=== PATIENT | female | born 1980 | race Caucasian/White ===

== ENCOUNTER 2019-04-10 12:26 | Emergency (ER) | payer OTHER ==
[~2019-04-10] VITALS: Ht 170.2 cm; Wt 90.7 kg
--- OUTSIDE RECORDS SUMMARY | ~2019-04-10 | XMS | Encounter Summary ---
Demographics + + + | Address | [address] | | | [place] [address] | + + + | Home Phone | | + + + | Preferred Language | Unknown | + + + | Marital Status | | + + + | Sabianism Affiliation | Unknown | + + + | Race | Unknown | + + + | Ethnic Group | Unknown | + + + Author + + + | Author | [facility] | | | and Luis Fernandoana | + + + | Organization | [facility] | | | and [place] | + + + | Address | Unknown | + + + | Phone | Unavailable | + + + Care Team Providers + +------+ + | Care Artist Representative Name | Role | Phone | + +------+ + PCP | Unavailable | + +------+ + Encounter Details +--------+ + + + + | Date | Type | Department | Care Team | Description | +--------+ + + + + | 10/27/ | Hospital | [facility] GENER[facility] OP | Tiara Johnson, | LGSIL on Pap Smear | | 2006 | Encounter | CONVERSION [address] | PA-C [address] | | | | | [address] | [place], [place] | | | | | [place], [place] | [address] | | | | | [address] | [phone] | | | | | [phone] | | | +--------+ + + + + Social History + +-------+ +--------+------+ | Tobacco Use | Types | Packs/Day | Years | Date | | | | | Used | | + +-------+ +--------+------+ | Never Assessed | | | | | + +-------+ +--------+------+ + + + | Sex Assigned at | Date Recorded | | | | + + + | Not on file | | + + + + + + + | Job Start Date | Occupation | Industry | + + + + | Not on file | Not on file | Not on file | + + + + + + + + | Travel History | Travel Start | Travel End | + + + + + + | No recent travel history available. | + + documented as of this encounter Plan of Treatment Not on filedocumented as of this encounter Visit Diagnoses + + | Diagnosis | + + | Papanicolaou smear of cervix with low grade squamous intraepithelial lesion (LGSIL) | + + documented in this encounter"
--- OUTSIDE RECORDS SUMMARY | ~2019-04-10 | XMS | Clinical Summary ---
Demographics + + + | Address | [address] | | | [place] [address] | + + + | Home Phone | | + + + | Preferred Language | Unknown | + + + | Marital Status | | + + + | Anabaptism Affiliation | Unknown | + + + | Race | Unknown | + + + | Ethnic Group | Unknown | + + + Author + + + | Author | [facility] | | | and [place] Fernando[place] | + + + | Organization | [facility] | | | and [place] | + + + | Address | Unknown | + + + | Phone | Unavailable | + + + Care Team Providers + +------+ + | Care Roll Edge Machine Operator Name | Role | Phone | + +------+ + PCP | Unavailable | + +------+ + Allergies Not on File Medications Not on file Active Problems Not on file Encounters +--------+ + + + + | Date | Type | Specialty | Care Team | Description | +--------+ + + + + | 06/24/ | Orders Only | | Conversion | | | 2009 | | | Transaction, | | | | | | Provider Unknown | | +--------+ + + + + from Last 3 Months Social History + +-------+ +--------+------+ | Tobacco Use | Types | Packs/Day | Years | Date | | | | | Used | | + +-------+ +--------+------+ | Never Smoker | | | | | + +-------+ [...] recent travel history available. | + + Last Filed Vital Signs + + + + + | Vital Sign | Reading | Time Taken | Comments | + + + + + | Blood Pressure | 110/76 | 12/21/2015 12:26 PM | | | | | PDT | | + + + + + | Pulse | 90 | 12/21/2015 12:26 PM | | | | | PDT | | + + + + + | Temperature | 37.2 C (99 F) | 12/21/2015 12:26 PM | | | | | PDT | | + + + + + | Respiratory Rate | 18 | 12/21/2015 12:26 PM | | | | | PDT | | + + + + + | Oxygen Saturation | - | - | | + + + + + | Inhaled Oxygen | - | - | | | Concentration | | | | + + + + + | Weight | 65.6 kg (144 lb 9.6 | 12/21/2015 12:26 PM | | | | oz) | PDT | | + + + + + | Height | 170.2 cm (5' 7") | 12/21/2015 12:26 PM | | | | | PDT | | + + + + + | Body Mass Index | 22.65 | 12/21/2015 12:26 PM | | | | | PDT | | + + + + + Plan of Treatment + + + + + | Health Maintenance | Due Date | Last Done | Comments | + + + + + | Vaccine: | | | | | Dtap/Tdap/Td (1 - | 7 | | | | Tdap) | | | | + + + + + | Cervical Cancer | | 06/24/2008 | | | Screening (Pap) | 4 | | | + + + + + | Vaccine: Influenza | | | | | (#1) | 9 | | | + + + + + Results Not on filefrom Last 3 Months
--- OUTSIDE RECORDS SUMMARY | ~2019-04-10 | XMS | Encounter Summary ---
Demographics + + + | Address | [address] | | | [place] [address] | + + + | Home Phone | | + + + | Preferred Language | Unknown | + + + | Marital Status | | + + + | Mosque Affiliation | Unknown | + + + | Race | Unknown | + + + | Ethnic Group | Unknown | + + + Author + + + | Author | [facility] | | | and [place] Fernando[place] | + + + | Organization | [facility] | | | and [place] | + + + | Address | Unknown | + + + | Phone | Unavailable | + + + Care Team Providers + +------+ + | Care Seamless Tube Drawer Name | Role | Phone | + +------+ + PCP | Unavailable | + +------+ + Encounter Details +--------+ + + + + | Date | Type | Department | Care Team | Description | +--------+ + + + + | 06/10/ | [facility] | [facility] | Javan Jimenez | Screening | | 2007 | Encounter | CONVERSION [address]P [address] | Cresencio [phone] | for Malformation | | | | [address] | (Fax) | Using Ultrasonics | | | | [facility] [place] | | | | | | [address] | | | | | | [phone] | | | +--------+ + + + [...] + | Diagnosis | + + | Encounter for routine screening for malformation using ultrasonics | + + documented in this encounter"
--- OUTSIDE RECORDS SUMMARY | ~2019-04-10 | XMS | Encounter Summary ---
Demographics + + + | Address | [address] | | | [place] [address] | + + + | Home Phone | | + + + | Preferred Language | Unknown | + + + | Marital Status | Single | + + + | Orthodox Affiliation | Unknown | + + + | Race | Unknown | + + + | Ethnic Group | Other Race | + + + Author + + + | Author | [facility] | + + + | Organization | [facility] | + + + | Address | Unknown | + + + | Phone | Unavailable | + + + Support +------+ +---------+ + | Name | Relationship | Address | Phone | +------+ +---------+ + | Unk | ECON | Unknown | Unavailable | +------+ +---------+ + Care Team Providers + +------+ + | Care Tangible Personal Property Appraiser Name | Role | Phone | + +------+ + | Unknown | PCP | Unavailable | + +------+ + Reason for Visit + + + | Reason | Comments | + + + | Medication requested | | + + + Encounter Details +--------+ + + + + | Date | Type | Department | Care Team | Description | +--------+ + + + + | 11/23/ | Urgent Care | [facility] | Reggie Santillan, FAST FOODS WORKER | Medication requested | | 2019 | Video | Visits- Urgent Care | [address] | | | | Visit | [address] | [address] | | | | | [place], | [place], [place] | | | | | [place] [address] | [address] | | | | | [phone] | [phone] | | | | | | | | +--------+ + + + [...] + + documented as of this encounter Progress Notes Reggie Santillan, FAST FOODS WORKER - 11/23/2018 2:30 PM PDT [facility] Visits- Urgent Care [address] [facility] [address] Primary Care Doctor is No primary provider on file. Patient is calling from home today. Chief Complaint: Medication requested HPI: Pt is a 38 y.o. female who presents with request for medication refill and rash. Pt is requesting refill Contrave. Pt reports that she was placed on this for obesity, and h ad been tolerating medication well until her PCP moved in May 2018. Pt reports that when PCP moved they took her medical records, and other facilities in her community now refuse to re fill medication without medical records. Pt reports she has not been on this medication in 2 -3 months. Pt requesting baclofen and gabapentin. Pt states she has been prescribed this and hydrocodo ne/acteminophen for chronic mid back pain secondary to kyphosis by primary care. Pt states s he does not want the hydrocodone/acetaminphen as baclofen and gabapentin control symptoms. P t states that she has not been on either of these medications in 2-3 months. Pt states the marti barton mentioned PCP left in May as she has not been able to establish someone to disc uss her chronic back pain. Pt denies any acute changes to chronic back pain. In regards to rash, pt reports circular hypopigmented areas on the breast, chest, and back for a number of years. Pt reports she was previously diagnosed with a fungal infection and p t reports she previously had to be prescribed multiple weeks of daily oral antifungals. Pt r eports that after multiple weeks, symptoms resolved but soon after redeveloped. Pt describes them as itching, traveling to various areas on the trunk. Pt denies any pain or drainage. P t reports topical antifungals have not provided with any relief. Pt states she attempted to make an apt with a PCP in her community a number of months ago t o discuss these issues, however she states they informed her without her previous records th ey would not take her as a new patient. Pt chart is reviewed for relevant medical history. Pt is prescribed Ambien every night for insomnia. Problem List: There are no active problems to display for this patient. Past Medical History: No past medical history on file. Past Surgical History: No past surgical history on file. Past Social Hx: Social History Socioeconomic History Marital status: Not on file Spouse name: Not on file Number of children: Not on file Years of education: Not on file Highest education level: Not on file Occupational History Not on file Social Needs Financial resource strain: Not on file Food insecurity: Worry: Not on file Inability: Not on file Transportation needs: Medical: Not on file Non-medical: Not on file Tobacco Use Smoking status: Not on file Substance and Sexual Activity Alcohol use: Not on file Drug use: Not on file Sexual activity: Not on file Lifestyle Physical activity: Days per week: Not on file Minutes per session: Not on file Stress: Not on file Relationships Social connections: Talks on phone: Not on file Gets together: Not on file Attends islam service: Not on file Active member of club or organization: Not on file Attends meetings of clubs or organizations: Not on file Relationship status: Not on file Other Topics Concern Not on file Social History Narrative Not on file Past Family Hx: All: No Known Allergies Rx List: No current outpatient medications on file. No current facility-administered medications for this visit. ROS: Review of Systems Constitutional: Negative for chills and fever. Respiratory: Negative for cough. Cardiovascular: Negative for chest pain. Gastrointestinal: Negative for abdominal pain, diarrhea, nausea and vomiting. Musculoskeletal: Positive for back pain. Skin: Positive for itching and rash. Psychiatric/Behavioral: The patient has insomnia. Physical Exam: Physical Exam Constitutional: She is well-developed, well-nourished, and in no distress. HENT: Head: Normocephalic. Eyes: Pupils are equal, round, and reactive to light. Neck: Normal range of motion. Pulmonary/Chest: Effort normal. No respiratory distress. Skin: Circular 1-2 cm hypopigmented areas present on the upper portion of the chest. No erythema break in the skin, swelling or drainage. Breast area not examined due to [facility] policy. Assessment/Plan: Pt is a 38 y.o. female who presents with rash and request for medication r efills. In regards to the chronic back pain, I do not recommend starting these chronic medications via the [facility]. The reasoning I have is that we are not able to monitor and follow up with thi s patient. Gabapentin requires careful titration, especially in the context of other sedatin g drugs the patient is taking such as ambien. The patient would be best served by being seen by a PCP who can make determinations about the appropriate of medication and other therapie s for her chronic back pain. I do not believe that restarting anti-obesity medication of Contrave is appropriate via the [facility] for similar reasons as we are unable to perform a full physical exam, follow up, and p rovide other referrals that may be indicated such as dietary. In regards to the rash, the circular hypopigmentation has a presentation consistent with ti carolann versicolor. Pt reports resolution with multiple weeks of oral antifungals and reoccurren ce of symptoms when these medications were stopped. They are widespread and pt reports they are present on the breasts, chest and back. I am hesitant to prescribe oral antifungals for a long period of time via virtual urgent care due to our lack of ability to follow up and in ability to check LFTs at baseline. I am not sure of the value in shorter length of treatment given her history of requiring longer treatment. Given reoccurrence of tinea versicolor and history of obesity, screening for diabetes would likely be beneficial as well. To this end, I'd recommend being seen at an in person urgent care who should be able to provide further guidance and any necessary baseline testing before the initiation of oral antifungal therapy . Pt states she has physical urgent cares in her community. Pt would highly benefit from a primary care provider, which she states she will do further research on in her community. I informed pt that primary care providers should be willing to see her without records, although they may require records before they prescribe certain me dications. Diagnosis: PCP Referral: Patient does not have current PCP, a referral to a new PCP referral was bishnu ryan Offered referral to the demi Curry declines due to distance I spent 10 minutes with the patient. Greater than 50% of the time was spent counseling the patient regarding symptoms, importance of being seen in person. Pt was referred to higher level of care: yes, Pt's PCP ADEEL Voss documented in this enc ounter Plan of Treatment Not on filedocumented as of this encounter Visit Diagnoses + + | Diagnosis | + + | Chronic back pain, unspecified back location, unspecified back pain laterality - | | Primary | + + | Obesity, unspecified classification, unspecified obesity type, unspecified whether | | serious comorbidity present | + + | Tinea versicolor Pityriasis versicolor | + + documented in this encounter"
--- OUTSIDE RECORDS SUMMARY | ~2019-04-10 | XMS | Encounter Summary ---
Demographics + + + | Address | [address] | | | [place] [address] | + + + | Home Phone | | + + + | Preferred Language | Unknown | + + + | Marital Status | | + + + | Amish Affiliation | Unknown | + + + | Race | Unknown | + + + | Ethnic Group | Unknown | + + + Author + + + | Author | [facility] | | | and Luis Fernandoana | + + + | Organization | [facility] | | | and [place] | + + + | Address | Unknown | + + + | Phone | Unavailable | + + + Care Team Providers + +------+ + | Care Product Safety Lead Name | Role | Phone | + +------+ + PCP | Unavailable | + +------+ + Encounter Details +--------+ + + + + | Date | Type | Department | Care Team | Description | +--------+ + + + + | 06/24/ | Orders Only | [facility] GENER[facility] OP | Conversion | | | 2009 | | CONVERSION [address]P [address] | Transaction, | | | | | [address] | Provider Unknown | | | | | [place], [place] | [phone] | | | | | [address] | | | | | | [phone] | | | +--------+ + + + [...] Not on filedocumented as of this encounter Procedures + +--------+ + + + | Procedure Name | Priori | Date/Time | Associated Diagnosis | Comments | | | ty | | | | + +--------+ + + + | PATHOLOGY PROFESSOR OF COMMUNICATION AND WRITING | Routin | 06/24/2008 | | Results for this | | REQUEST | e | 11:12 AM | | procedure are in the | | | | PST | | results section. | + +--------+ + + + documented in this encounter Results Pathology Stenographic Court Reporter Request (06/24/2008 11:12 AM PST) + +--------+ + + + | Component | Value | Ref Range | Performed | Pathologist | | | | | At | Signature | + +--------+ + + + | Pap Smear, | Normal | | EXTERNAL | | | External | | | LAB | | + +--------+ + + + + + | Specimen | + + | | + + + +---------+ + + | Performing | Address | City/State/Zipcode | Phone Number | | Organization | | | | + +---------+ + + | EXTERNAL LAB | | | | + +---------+ + + documented in this encounter Visit Diagnoses Not on filedocumented in this encounter"
--- OUTSIDE RECORDS SUMMARY | ~2019-04-10 | XMS | Encounter Summary ---
Demographics + + + | Address | [address] | | | [place] [address] | + + + | Home Phone | | + + + | Preferred Language | Unknown | + + + | Marital Status | | + + + | Mosque Affiliation | Unknown | + + + | Race | Unknown | + + + | Ethnic Group | Unknown | + + + Author + + + | Author | [facility] | | | and [place] Fernando[place] | + + + | Organization | [facility] | | | and [place] | + + + | Address | Unknown | + + + | Phone | Unavailable | + + + Care Team Providers + +------+ + | Care Risk Control Specialist Name | Role | Phone | + +------+ + PCP | Unavailable | + +------+ + Encounter Details +--------+ + + + + | Date | Type | Department | Care Team | Description | +--------+ + + + + | 10/13/ | Hospital | [facility] [place] [facility] | Richard Hogan | Routine | | 2008 | Encounter | CONVERSION [address] | MD Michael [address] | Follow-Up | | | | [address] | [place] | | | | | [place] | [id number] | | | | | [address] | | | | | | [phone] | | | +--------+ + + + [...] + | Diagnosis | + + | Routine follow-up | + + documented in this encounter"
--- OUTSIDE RECORDS SUMMARY | ~2019-04-10 | XMS | Encounter Summary ---
Demographics + + + | Address | [address] | | | [place] [address] | + + + | Home Phone | | + + + | Preferred Language | Unknown | + + + | Marital Status | | + + + | Jain Affiliation | Unknown | + + + | Race | Unknown | + + + | Ethnic Group | Unknown | + + + Author + + + | Author | [facility] | | | and [place] | + + + | Organization | [facility] | | | and [place] | + + + | Address | Unknown | + + + | Phone | Unavailable | + + + Care Team Providers + +------+ + | Care Inspector Aligning Name | Role | Phone | + +------+ + PCP | Unavailable | + +------+ + Encounter Details +--------+ + + + + | Date | Type | Department | Care Team | Description | +--------+ + + + + | 03/05/ | [facility] | [facility] | Javan Jimenez | | | 2004 | Encounter | [facility] | Cresencio [phone] | | | | | [address] | (Fax) | | | | | [address] | | | | | | [place], [place] | | | | | | [address] | | | | | | [phone] | | | +--------+ + + + [...] filedocumented as of this encounter Visit Diagnoses Not on filedocumented in this encounter"
--- OUTSIDE RECORDS SUMMARY | ~2019-04-10 | XMS | Encounter Summary ---
Demographics + + + | Address | [address] | | | [place] [address] | + + + | Home Phone | | + + + | Preferred Language | Unknown | + + + | Marital Status | | + + + | Congregation Affiliation | Unknown | + + + | Race | Unknown | + + + | Ethnic Group | Unknown | + + + Author + + + | Author | [facility] | | | and [place] Fernando[place] | + + + | Organization | [facility] | | | and [place] | + + + | Address | Unknown | + + + | Phone | Unavailable | + + + Care Team Providers + +------+ + | Care Shopping Inspector Name | Role | Phone | + +------+ + PCP | Unavailable | + +------+ + Encounter Details +--------+ + + + + | Date | Type | Department | Care Team | Description | +--------+ + + + + | 04/20/ | Hospital | [facility] [place] | Javan Jimenez | | | 2007 | Encounter | [address] | Cresencio [phone] | | | | | [address] | (Fax) | | | | | [place] | | | | | | [address] | | | | | | [phone] | | | +--------+ + + + [...]
--- OUTSIDE RECORDS SUMMARY | ~2019-04-10 | XMS | Encounter Summary ---
Demographics + + + | Address | [address] | | | [place] [address] | + + + | Home Phone | | + + + | Preferred Language | Unknown | + + + | Marital Status | | + + + | Confucianist Affiliation | Unknown | + + + | Race | Unknown | + + + | Ethnic Group | Unknown | + + + Author + + + | Author | [facility] | | | and [place] Fernando[place] | + + + | Organization | [facility] | | | and [place] | + + + | Address | Unknown | + + + | Phone | Unavailable | + + + Care Team Providers + +------+ + | Care Fruit Loader Machine Operator Name | Role | Phone | + +------+ + PCP | Unavailable | + +------+ + Encounter Details +--------+ + + + + | Date | Type | Department | Care Team | Description | +--------+ + + + + | 03/05/ | Hospital | [facility] | Javan Jimenez | [facility] | | 2003 | Encounter | CONVERSION [address] | Cresencio [phone] | FOLLOW-UP | | | | [address] | (Fax) | | | | | [place] | | | | | | [address] | | | | | | [phone] | | | +--------+ + + + [...]
--- OUTSIDE RECORDS SUMMARY | ~2019-04-10 | XMS | Encounter Summary ---
Demographics + + + | Address | [address] | | | [place] [address] | + + + | Home Phone | | + + + | Preferred Language | Unknown | + + + | Marital Status | | + + + | Muslim Affiliation | Unknown | + + + | Race | Unknown | + + + | Ethnic Group | Unknown | + + + Author + + + | Author | [facility] | | | and [place] | + + + | Organization | [facility] | | | and [place] | + + + | Address | Unknown | + + + | Phone | Unavailable | + + + Care Team Providers + +------+ + | Care Tiltrotor Crew Chief Name | Role | Phone | + +------+ + PCP | Unavailable | + +------+ + Encounter Details +--------+ + + + + | Date | Type | Department | Care Team | Description | +--------+ + + + + | 03/06/ | Hospital | [facility] GENERIC OP | Tiara Johnson, | | | 2006 | Encounter | [address] | PA-C [address] | | | | | [address] | [place] | | | | | [place] | [address] | | | | | [address] | [phone] | | | | | [phone] | | | +--------+ + + + [...]
--- OUTSIDE RECORDS SUMMARY | ~2019-04-10 | XMS | Encounter Summary ---
Demographics + + + | Address | [address] | | | [place] [address] | + + + | Home Phone | | + + + | Preferred Language | Unknown | + + + | Marital Status | | + + + | Orthodox Affiliation | Unknown | + + + | Race | Unknown | + + + | Ethnic Group | Unknown | + + + Author + + + | Author | [facility] | | | and [place] Fernandoana | + + + | Organization | [facility] | | | and [place] | + + + | Address | Unknown | + + + | Phone | Unavailable | + + + Care Team Providers + +------+ + | Care Armor Reconnaissance Vehicle Driver Name | Role | Phone | + +------+ + PCP | Unavailable | + +------+ + Encounter Details +--------+ + + + + | Date | Type | Department | Care Team | Description | +--------+ + + + + | 02/26/ | Hospital | [facility] | Tiara Johnson, | | | 2006 | Encounter | CONVERSION DEP [address] | PA-C [address] | | | | | [address] | [place] | | | | | [place] | [address] | | | | | [address] | [phone] | | | | | [phone] | | | +--------+ + + + [...]
--- OUTSIDE RECORDS SUMMARY | ~2019-04-10 | XMS | Clinical Summary ---
Demographics + + + | Address | [address] | | | [place] [address] | + + + | Home Phone | | + + + | Preferred Language | Unknown | + + + | Marital Status | Single | + + + | Methodist Affiliation | Unknown | + + + | Race | Unknown | + + + | Ethnic Group | Other Race | + + + Author + + + | Author | [facility]VEN[facility] | + + + | Organization | NON REVENUE LOCATIONS | + + + | Address | Unknown | + + + | Phone | Unavailable | + + + Support +------+ +---------+ + | Name | Relationship | Address | Phone | +------+ +---------+ + | Unk | ECON | Unknown | Unavailable | +------+ +---------+ + Care Team Providers + +------+ + | Care Technical Document Writer Name | Role | Phone | + +------+ + | Unknown | PCP | Unavailable | + +------+ + Source Comments FARIDA is fully live on both [facility] Amb[facility] and [facility] InPatient.[facility] Allergies No Known Allergies Medications Not on file Active Problems Not on file Social History + +-------+ +--------+------+ | Tobacco [...] | + + Last Filed Vital Signs Not on file Plan of Treatment + + + + + | Health Maintenance | Due Date | Last Done | Comments | + + + + + | Influenza (Flu) | | 05/27/2017, 02/27/2016, | | | vaccination (#1) | 9 | 02/23/2014, Additional history | | | | | exists | | + + + + + | Pneumococcal | Aged Out | | No longer eligible | | vaccination | | | based on patient's | | | | | age to complete this | | | | | topic | + + + + + Results Not on filefrom Last 3 Months Insurance + +--------+ +--------+-------+---------+--------+ | Payer | Benefi | Subscriber | Effect | Phone | Address | Type | | | t Plan | ID | naz | | | | | | / | | Dates | | | | | | Group | | | | | | + +--------+ +--------+-------+---------+--------+ | GLASS RIBBON MACHINE OPERATOR ASSISTANT MEDICAID | GLASS RIBBON MACHINE OPERATOR ASSISTANT | xxxxxxxx | 11/25/19 | | | Medica | | | [place] | | 18-Pre | | | id | | | [place] | | sent | | | | + +--------+ +--------+-------+---------+--------+ + +--------+ +--------+ + + | Guarantor Name | Accoun | Relation to | Date | Phone | Billing Address | | | t Type | Patient | of | | | | | | | | | | + +--------+ +--------+ + + | Patsy Thornton | Person | Self | [birth year] | [address] | | | al/Fam | | 1980 | [phone] | [place] [address] | | | rogelio | | | 9 (Home) | | + +--------+ +--------+ + +"
--- OUTSIDE RECORDS SUMMARY | ~2019-04-10 | XMS | Clinical Summary ---
Demographics + + + | Address | [address] | | | [place] [address] | + + + | Home Phone | | + + + | Preferred Language | Unknown | + + + | Marital Status | | + + + | Druze Affiliation | Unknown | + + + | Race | Unknown | + + + | Ethnic Group | Unknown | + + + Author + + + | Author | [facility] | | | and [place] | + + + | Organization | [facility] | | | and [place] | + + + | Address | Unknown | + + + | Phone | Unavailable | + + + Care Team Providers + +------+ + | Care Field Support Representative Name | Role | Phone | [...]
--- OUTSIDE RECORDS SUMMARY | ~2019-04-10 | XMS | Encounter Summary ---
Demographics + + + | Address | [address] | | | [place] [address] | + + + | Home Phone | | + + + | Preferred Language | Unknown | + + + | Marital Status | | + + + | Amish Affiliation | Unknown | + + + | Race | Unknown | + + + | Ethnic Group | Unknown | + + + Author + + + | Author | [facility] | | | and [place] | + + + | Organization | [facility] | | | and [place] | + + + | Address | Unknown | + + + | Phone | Unavailable | + + + Care Team Providers + +------+ + | Care Skiff Operator Name | Role | Phone | + +------+ + PCP | Unavailable | + +------+ + Encounter Details +--------+ + + + + | Date | Type | Department | Care Team | Description | +--------+ + + + + | 02/28/ | Hospital | [facility] | Javan Jimenez | | | 2003 - | Encounter | [facility] | Cresencio [phone] | | | | | AND DELIVERY 888 | (Fax) | | | 03/02/ | | [address] | | | | 2003 | | [facility] [place] | | | | | | [address] | | | | | | [phone] | | | +--------+ + + + [...]
--- OUTSIDE RECORDS SUMMARY | ~2019-04-10 | XMS | Encounter Summary ---
Demographics + + + | Address | [address] | | | [place] [address] | + + + | Home Phone | | + + + | Preferred Language | Unknown | + + + | Marital Status | | + + + | Jehovah'S Witness Affiliation | Unknown | + + + | Race | Unknown | + + + | Ethnic Group | Unknown | + + + Author + + + | Author | [facility] | | | and [place] | + + + | Organization | [facility] | | | and [place] | + + + | Address | Unknown | + + + | Phone | Unavailable | + + + Care Team Providers + +------+ + | Care Sort Operations Supervisor Name | Role | Phone | + +------+ + PCP | Unavailable | + +------+ + Encounter Details +--------+ + + + + | Date | Type | Department | Care Team | Description | +--------+ + + + + | 03/05/ | Hospital | [facility] | Javan Jimenez | KATHERINE POSTPART | | 2003 | Encounter | CONVERSION DEP [address] | Cresencio [phone] | FOLLOW-UP | | | | [address] | (Fax) | | | | | [place] | | | | | | [address] | | | | | | [phone] | | | +--------+ + + + [...]
--- OUTSIDE RECORDS SUMMARY | ~2019-04-10 | XMS | Encounter Summary ---
Demographics + + + | Address | [address] | | | [place] [address] | + + + | Home Phone | | + + + | Preferred Language | Unknown | + + + | Marital Status | | + + + | Mandaen Affiliation | Unknown | + + + | Race | Unknown | + + + | Ethnic Group | Unknown | + + + Author + + + | Author | [facility] | | | and [place] | + + + | Organization | [facility] | | | and [place] | + + + | Address | Unknown | + + + | Phone | Unavailable | + + + Care Team Providers + +------+ + | Care Attic Fans Mechanic Name | Role | Phone | + +------+ + PCP | Unavailable | + +------+ + Encounter Details +--------+ + + + + | Date | Type | Department | Care Team | Description | +--------+ + + + + | 09/12/ | [facility] | [facility] | Cali Cabrera MD | | | 2010 | Encounter | MED CTR XRAY [address] | | | | | [address] [place] | [place] [address] | | | | | [place] [address] | [phone] | | | | | [phone] | | | +--------+ + + + [...]
--- OUTSIDE RECORDS SUMMARY | ~2019-04-10 | XMS | Encounter Summary ---
Demographics + + + | Address | [address] | | | [place] [address] | + + + | Home Phone | | + + + | Preferred Language | Unknown | + + + | Marital Status | | + + + | Muslim Affiliation | Unknown | + + + | Race | Unknown | + + + | Ethnic Group | Unknown | + + + Author + + + | Author | [facility] | | | and [place] | + + + | Organization | [facility] | | | and [place] | + + + | Address | Unknown | + + + | Phone | Unavailable | + + + Care Team Providers + +------+ + | Care Cad Developer Name | Role | Phone | + [...] | | | | [place] | [address] | | | | | [address] | [phone] | | | | | [phone] | | | +--------+ + + + [...]
--- OUTSIDE RECORDS SUMMARY | ~2019-04-10 | XMS | Encounter Summary ---
Demographics + + + | Address | [address] | | | [place] [address] | + + + | Home Phone | | + + + | Preferred Language | Unknown | + + + | Marital Status | | + + + | Buddhist Affiliation | Unknown | + + + | Race | Unknown | + + + | Ethnic Group | Unknown | + + + Author + + + | Author | [facility] | | | and [place] | + + + | Organization | [facility] | | | and [place] | + + + | Address | Unknown | + + + | Phone | Unavailable | + + + Care Team Providers + +------+ + | Care Mobile Crane Operator Name | Role | Phone | + +------+ + PCP | Unavailable | + +------+ + Encounter Details +--------+ + + + + | Date | Type | Department | Care Team | Description | +--------+ + + + + | 02/28/ | Hospital | [facility] | Javan Jimenez | | | 2003 - | Encounter | [facility] | Cresencio [phone] | | | | | AND DELIVERY 888 | (Fax) | | | 03/02/ | | [address] | | | | 2003 | | [facility] [place] | | | | | | [address] | | | | | | [phone] | | | +--------+ + + + [...]
--- OUTSIDE RECORDS SUMMARY | ~2019-04-10 | XMS | Clinical Summary ---
Demographics + + + | Address | [address] [facility] [address] [facility] | | | [place] [address] | + + + | Home Phone | | + + + | Preferred Language | Unknown | + + + | Marital Status | Single | + + + | Bahai Affiliation | Unknown | + + + [...] Team Providers + +------+ + | Care Ground Source Heat Pump Technician Name | Role | Phone | + +------+ + | Unknown | PCP | Unavailable | + +------+ + Source Comments FARIDA is fully live on both [facility] Ambulatory and [facility] InPatient.[facility] Allergies No Known Allergies Medications Not on [...] | | | + +--------+ +--------+-------+---------+--------+ | COMMERCIAL DRAFTER MEDICAID | COMMERCIAL DRAFTER | xxxxxxxx | 11/25/19 | | | [...] | 1980 | [phone] | [place] [address] | | | [place]io | | | 9 (Home) | | + +--------+ +--------+ + +"
--- OUTSIDE RECORDS SUMMARY | ~2019-04-10 | XMS | Encounter Summary ---
Demographics + + + | Address | [address] | | | [place] [address] | + + + | Home Phone | | + + + | Preferred Language | Unknown | + + + | Marital Status | | + + + | Yarsani Affiliation | Unknown | + + + | Race | Unknown | + + + | Ethnic Group | Unknown | + + + Author + + + | Author | [facility] | | | and [place] | + + + | Organization | [facility] | | | and [place] | + + + | Address | Unknown | + + + | Phone | Unavailable | + + + Care Team Providers + +------+ + | Care Hand Gluer And Slicer Name | Role | Phone | + +------+ + PCP | Unavailable | + +------+ + Encounter Details +--------+ + + + + | Date | Type | Department | Care Team | Description | +--------+ + + + + | 10/13/ | Hospital | [facility] | Richard Hogan | Routine | | 2008 | Encounter | CONVERSION DEP [address] | MD Michael [address] | Follow-Up | | | | [address] | [place] | | | | | [place] | [id number] | | | | | [address] | | | | | | [phone] | | | +--------+ + + + [...]
--- OUTSIDE RECORDS SUMMARY | ~2019-04-10 | XMS | Encounter Summary ---
Demographics + + + | Address | [address] | | | [place] [address] | + + + | Home Phone | | + + + | Preferred Language | Unknown | + + + | Marital Status | | + + + | Sabianist Affiliation | Unknown | + + + | Race | Unknown | + + + | Ethnic Group | Unknown | + + + Author + + + | Author | [facility] | | | and [place] | + + + | Organization | [facility] | | | and [place] | + + + | Address | Unknown | + + + | Phone | Unavailable | + + + Care Team Providers + +------+ + | Care Community Living Coach Name | Role | Phone | + +------+ + PCP | Unavailable | + +------+ + Encounter Details +--------+ + + + + | Date | Type | Department | Care Team | Description | +--------+ + + + + | 10/02/ | [facility] | [facility] | Cali Cabrera MD | | | 2010 | Encounter | MED CTR XRAY [address] | | | | | [place] [place] | [place] [address] | | | | | [place] [address] | [phone] | | | | | [phone] | | | +--------+ + + + [...] | + +--------+ + + + | XR THORACOLUMBAR | | 10/02/2010 | | Results for this | | STANDING FOR | | 10:09 AM | | procedure are in the | | SCOLIOSIS | | PDT | | results section. | + +--------+ + + + documented in this encounter Results XR Scoliosis Standing (10/02/2010 10:09 AM PDT) + + | Specimen | + + | | + + + + + | Narrative | Performed At | + + + | [facility] Diagnostic Imaging Department | [facility] | | [address] | [facility] | | SIX-VIEW SCOLIOSIS SERIES, | DIAG IMG | | 10/02/10 CLINICAL HISTORY: BACK PAIN AND SCOLIOSIS. | | | COMPARISON: Thoracic MRI 12/07/2009, CT thoracic spine 07/19/2009, | | | both from [facility]. FINDINGS: AP neutral and | | | lateral bending views and lateral views of the spine in neutral, | | | flexed and extended positions are provided. Previously described | | | butterfly vertebra at T7 is best visualized on the lateral views. | | | Approximately 34 degrees of kyphosis is centered at this level, | | | increasing to 49 degrees with active flexion and appearing relatively | | | stable with active extension. No spondylolisthesis is appreciated. | | | There is dominant rightward curvature of the lower thoracic and | | | lumbar spine centered at T12, measuring approximately 14 degrees in | | | the neutral position. This decreases to 5 degrees with right | | | lateral bending and increases to 25 degrees with left lateral | | | bending. Additional mild S-shaped curvature of the mid thoracic | | | spine appears grossly similar in appearance with lateral bending. | | | Surgical clips project in the region of the gallbladder fossa. | | | Imaged intrathoracic and intraabdominal structures are otherwise | | | unremarkable. Straightening of the cervical lordosis is | | | incidentally noted. IMPRESSION: 1. 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 2. DOMINANT DEXTROSCOLIOSIS | | | CENTERED AT T12, INCREASING WITH LEFT LATERAL BENDING AND DECREASING | | | WITH RIGHT LATERAL BENDING INDICATED. Dictated Date/Time: | | | 10/02/2010 14:26 Transcribed Date/Time: 10/02/2010 14:47 | | | Dump Worker: <Electronically Signed by Romeo Sarabia MD> | | | 10/02/10 2208 | | + + + + + | Procedure Note | + + | Percy, Rad Conversion - 07/02/2013 2:54 PM [facility] | | Diagnostic Imaging Department | | [address] | | | | | | | | SIX-VIEW SCOLIOSIS SERIES, 10/02/10 | | | | CLINICAL HISTORY: BACK PAIN AND SCOLIOSIS. | | | | COMPARISON: Thoracic MRI 12/07/2009, CT thoracic spine 07/19/2009, both from | | [facility]. | | | | FINDINGS: AP neutral and lateral bending views and lateral views of the spine | | in neutral, flexed and extended positions are provided. | | | | Previously described butterfly vertebra at T7 is best visualized on the lateral | | views. Approximately 34 degrees of kyphosis is centered at this level, | | increasing to 49 degrees with active flexion and appearing relatively stable | | with active extension. No spondylolisthesis is appreciated. | | | | There is dominant rightward curvature of the lower thoracic and lumbar spine | | centered at T12, measuring approximately 14 degrees in the neutral position. | | This decreases to 5 degrees with right lateral bending and increases to 25 | | degrees with left lateral bending. Additional mild S-shaped curvature of the | | mid thoracic spine appears grossly similar in appearance with lateral bending. | | | | Surgical clips project in the region of the gallbladder fossa. Imaged | | intrathoracic and intraabdominal structures are otherwise unremarkable. | | Straightening of the cervical lordosis is incidentally noted. | | | | IMPRESSION: | | 1. T7 VERTEBRAL ANOMALY WITH ASSOCIATED KYPHOSIS, DISCUSSED. | | | | 2. DOMINANT DEXTROSCOLIOSIS CENTERED AT T12, INCREASING WITH LEFT LATERAL | | BENDING AND DECREASING WITH RIGHT LATERAL BENDING INDICATED. | | | | Dictated Date/Time: 10/02/2010 14:26 | | Transcribed Date/Time: 10/02/2010 14:47 | | Dump Worker: | | <Electronically Signed by Romeo Sarabia MD> 10/02/10 2208 | + + + +---------+ + + | Performing | Address | City/State/Zipcode | Phone Number | | Organization | | | | + +---------+ + + | [place] | | | | | [place] | | | | + +---------+ + + documented in this encounter Visit Diagnoses Not on filedocumented in this encounter"
--- OUTSIDE RECORDS SUMMARY | ~2019-04-10 | XMS | Encounter Summary ---
Demographics + + + | Address | [address] | | | [place] [address] | + + + | Home Phone | | + + + | Preferred Language | Unknown | + + + | Marital Status | | + + + | Worship Affiliation | Unknown | + + + | Race | Unknown | + + + | Ethnic Group | Unknown | + + + Author + + + | Author | [facility] | | | and [place] | + + + | Organization | [facility] | | | and [place] | + + + | Address | Unknown | + + + | Phone | Unavailable | + + + Care Team Providers + +------+ + | Care Clinical Services Professional Name | Role | Phone | + +------+ + PCP | Unavailable | + +------+ + Encounter Details +--------+ + + + + | Date | Type | Department | Care Team | Description | +--------+ + + + + | 06/10/ | [facility] | [facility] | Javan Jimenez | Screening | | 2007 | Encounter | CONVERSION DEP [address] | Cresencio [phone] | for Malformation | | | | [address] | (Fax) | Using [employer] | | | | [facility] [place] | | | | | | [address] | | | | | | [phone] | | | +--------+ + + + [...]
--- OUTSIDE RECORDS SUMMARY | ~2019-04-10 | XMS | Encounter Summary ---
Demographics + + + | Address | [address] | | | [place] [address] | + + + | Home Phone | | + + + | Preferred Language | Unknown | + + + | Marital Status | | + + + | Cheondoism Affiliation | Unknown | + + + | Race | Unknown | + + + | Ethnic Group | Unknown | + + + Author + + + | Author | [facility] | | | and [place] | + + + | Organization | [facility] | | | and [place] | + + + | Address | Unknown | + + + | Phone | Unavailable | + + + Care Team Providers + +------+ + | Care Stable Manager Name | Role | Phone | + +------+ + PCP | Unavailable | + +------+ + Encounter Details +--------+ + + + + | Date | Type | Department | Care Team | Description | +--------+ + + + + | 03/05/ | [facility] | [facility] | Javan Jimenez | | | 2004 | Encounter | [facility] | Cresencio [phone] | | | | | AND DELIVERY [address] | (Fax) | | | | | [address] | | | | | | [place], [place] | | | | | | [address] | | | | | | [phone] | | | +--------+ + + + [...]
--- OUTSIDE RECORDS SUMMARY | ~2019-04-10 | XMS | Encounter Summary ---
Demographics + + + | Address | [address] | | | [place] [address] | + + + | Home Phone | | + + + | Preferred Language | Unknown | + + + | Marital Status | | + + + | Presybeterian Affiliation | Unknown | + + + | Race | Unknown | + + + | Ethnic Group | Unknown | + + + Author + + + | Author | [facility] | | | and [place] | + + + | Organization | [facility] | | | and [place] | + + + | Address | Unknown | + + + | Phone | Unavailable | + + + Care Team Providers + +------+ + | Care Biology Specialist Name | Role | Phone | [...] | | | | [address] | [place], [place] | | | | | [place], [place] | [address] | | | | | [address] | [phone] | | | | | [phone] | | | +--------+ + + + [...]
--- OUTSIDE RECORDS SUMMARY | ~2019-04-10 | XMS | Encounter Summary ---
Demographics + + + | Address | [address] | | | [place] [address] | + + + | Home Phone | | + + + | Preferred Language | Unknown | + + + | Marital Status | | + + + | Quaker Affiliation | Unknown | + + + | Race | Unknown | + + + | Ethnic Group | Unknown | + + + Author + + + | Author | [facility] | | | and [place] | + + + | Organization | [facility] | | | and [place] | + + + | Address | Unknown | + + + | Phone | Unavailable | + + + Care Team Providers + +------+ + | Care Wafer Cleaner Name | Role | Phone | + [...] | | | | [place] | [address] | | | | | [address] | [phone] | | | | | [phone] | | | +--------+ + + + [...]
--- OUTSIDE RECORDS SUMMARY | ~2019-04-10 | XMS | Encounter Summary ---
Demographics + + + | Address | [address] | | | [place] [address] | + + + | Home Phone | | + + + | Preferred Language | Unknown | + + + | Marital Status | Single | + + + | Religion Affiliation | Unknown | + + + | Race | Unknown | + + + | Ethnic Group | Other Race | + + + Author + + + | Author | [facility] | + + + | Organization | [facility] | + + + | Address | Unknown | + + + | Phone | Unavailable | + + + Support +------+ +---------+ + | Name | Relationship | Address | Phone | +------+ +---------+ + | Unk | ECON | Unknown | Unavailable | +------+ +---------+ + Care Team Providers + +------+ + | Care Maintenance Mechanic Supervisor Name | Role | Phone | [...] Care | [facility] | Reggie Santillan, HARDWARE PRESS OPERATOR | Medication requested | | 2019 | Video | Visits- Urgent Care | [address] | | | | Visit | [address] | [address] | | | | | [place], | [place], [place] | | | | | [place] [address] | [address] | | | | | [phone] | [phone] | | | | | | | [...] of this encounter Progress Notes Reggie Santillan, HARDWARE PRESS OPERATOR - 11/23/2018 2:30 PM PDT [facility] Virtual Visits- Urgent Care [address] [facility] [address] Primary Care Doctor is No primary provider [...] file Gets together: Not on file Attends anabaptist service: Not on file Active member of [...]
--- OUTSIDE RECORDS SUMMARY | ~2019-04-10 | XMS | Encounter Summary ---
Demographics + + + | Address | [address] | | | [place] [address] | + + + | Home Phone | | + + + | Preferred Language | Unknown | + + + | Marital Status | | + + + | Bahai Affiliation | Unknown | + + + | Race | Unknown | + + + | Ethnic Group | Unknown | + + + Author + + + | Author | [facility] | | | and [place] | + + + | Organization | [facility] | | | and [place] | + + + | Address | Unknown | + + + | Phone | Unavailable | + + + Care Team Providers + +------+ + | Care Tree Faller Name | Role | Phone | + +------+ + PCP | Unavailable | + +------+ + Encounter Details +--------+ + + + + | Date | Type | Department | Care Team | Description | +--------+ + + + + | 06/13/ | Hospital | [facility] | Javan Jimenez | Screening for | | 2008 | Encounter | CONVERSION DEP [address] | Cresencio [phone] | Malignant Neoplasm | | | | [address] | (Fax) | of the Cervix | | | | [place], [place] | | | | | | [address] | | | | | | [phone] | | | +--------+ + + + [...] + | Diagnosis | + + | Screening for malignant neoplasm of the cervix | + + documented in this encounter"
--- OUTSIDE RECORDS SUMMARY | ~2019-04-10 | XMS | Clinical Summary ---
Demographics + + + | Address | [address] | | | [place] [address] | + + + | Home Phone | | + + + | Preferred Language | Unknown | + + + | Marital Status | | + + + | Adventist Affiliation | Unknown | + + + | Race | Unknown | + + + | Ethnic Group | Unknown | + + + Author + + + | Author | [employer] (Historical as of | | | 01-09-19) | + + + | Organization | [facility] [employer] (Historical as of | | | 01-09-19) | + + + | Address | Unknown | + + + | Phone | Unavailable | + + + Support + + +---------+ + | Name | Relationship | Address | Phone | + + +---------+ + | Detailed,Sabina | ECON | Unknown | | + + +---------+ + | Kentrell Cobian | ECON | Unknown | | + + +---------+ + Care Team Providers + +------+ + | Care Storyboard Artist Name | Role | Phone | + +------+ + | Dr. Stephen | PP | Unavailable | + +------+ + Allergies No Known Allergies Current Medications No known medications Active Problems Not on file Social History + +-------+ +--------+------+ | Tobacco Use | Types | Packs/Day | Years | Date | | | | | Used | | + +-------+ +--------+------+ | Never Smoker | | | | | + +-------+ +--------+------+ + +---+---+---+ | Smokeless Tobacco: | | | | | Never Used | | | | + +---+---+---+ + + +---------+ + | Alcohol Use | Drinks/We | oz/Week | Comments | | | ek | | | + + +---------+ + | No | | | | + + +---------+ + + + + | Sex Assigned at | Date Recorded | | | | + + + | Not on file | | + + + Last Filed Vital Signs + + + + | Vital Sign | Reading | Time Taken | + + + + | Blood Pressure | 110/76 | 12/21/2015 12:23 PM PDT | + + + + | Pulse | 90 | 12/21/2015 12:23 PM PDT | + + + + | Temperature | 37.2 C (99 F) | 12/21/2015 12:23 PM PDT | + + + + | Respiratory Rate | 18 | 12/21/2015 12:23 PM PDT | + + + + | Oxygen Saturation | 98% | 12/21/2015 12:23 PM PDT | + + + + | Inhaled Oxygen | - | - | | Concentration | | | + + + + | Weight | 65.6 kg (144 lb 9.6 | 12/21/2015 12:23 PM PDT | | | oz) | | + + + + | Height | 170.2 cm (5' 7") | 12/21/2015 12:23 PM PDT | + + + + | Body Mass Index | 22.65 | 12/21/2015 12:23 PM PDT | + + + + Plan of Treatment + + + + + | Health Maintenance | Due Date | Last Done | Comments | + + + + + | Vaccine: | | | | | Dtap/Tdap/Td (1 - | 7 | | | | Tdap) | | | | + + + + + | Cervical Cancer | | 06/24/2008, 05/13/2007, | | | Screening (Pap) | 4 | 11/05/2006, Additional history | | | | | exists | | + + + + + | Vaccine: Influenza | | | | | (#1) | 9 | | | + + + + + Results Not on filefrom Last 3 Months
--- OUTSIDE RECORDS SUMMARY | ~2019-04-10 | XMS | Encounter Summary ---
Demographics + + + | Address | [address] | | | [place] [address] | + + + | Home Phone | | + + + | Preferred Language | Unknown | + + + | Marital Status | | + + + | Restoration Affiliation | Unknown | + + + | Race | Unknown | + + + | Ethnic Group | Unknown | + + + Author + + + | Author | [facility] | | | and [place] Fernando[place] | + + + | Organization | [facility] | | | and [place] | + + + | Address | Unknown | + + + | Phone | Unavailable | + + + Care Team Providers + +------+ + | Care Manager Packaging Name | Role | Phone | + +------+ + PCP | Unavailable | + +------+ + Encounter Details +--------+ + + + + | Date | Type | Department | Care Team | Description | +--------+ + + + + | 04/27/ | Hospital | [facility] | Richard Hogan | Supervision of Other | | 2006 | Encounter | CONVERSION [address]P [address] | MD Michael [address] | Normal | | | | [address] | [place] | | | | | [facility] [place] | [address] | | | | | [address] | | | | | | [phone] | | | +--------+ + + + [...] + | Diagnosis | + + | Supervision of other normal | + + documented in this encounter"
--- OUTSIDE RECORDS SUMMARY | ~2019-04-10 | XMS | Encounter Summary ---
Demographics + + + | Address | [address] | | | [place] [address] | + + + | Home Phone [...] Author | [facility] | | | and [place] | + + + | Organization | [facility] | | | and [place] | + + + | Address | Unknown | + + + | Phone | Unavailable | + + + Care Team Providers + +------+ + | Care Egg And Spice Mixer Name | Role | Phone | + +------+ + PCP | Unavailable | + +------+ + Encounter Details +--------+ + + + + | Date | Type | Department | Care Team | Description | +--------+ + + + + | 06/13/ | Hospital | [facility] | Javan Jimenez | Screening for | | 2008 | Encounter | CONVERSION DEP [address] | Cresencio [phone] | Malignant Neoplasm | | | | [address] | (Fax) | of the Cervix | | | | [place], [place] | | | | | | [address] | | | | | | [phone] | | | +--------+ + + + [...]
--- OUTSIDE RECORDS SUMMARY | ~2019-04-10 | XMS | Encounter Summary ---
Demographics + + + | Address | [address] | | | [place] [address] | + + + | Home Phone | | + + + | Preferred Language | Unknown | + + + | Marital Status | | + + + | Latter-Day Affiliation | Unknown | + + + | Race | Unknown | + + + | Ethnic Group | Unknown | + + + Author + + + | Author | [facility] | | | and [place] | + + + | Organization | [facility] | | | and [place] | + + + | Address | Unknown | + + + | Phone | Unavailable | + + + Care Team Providers + +------+ + | Care Purchasing Contracting Clerk Name | Role | Phone | + +------+ + PCP | Unavailable | + +------+ + Encounter Details +--------+ + + + + | Date | Type | Department | Care Team | Description | +--------+ + + + + | 10/09/ | Hospital | [facility] | Richard Hogan | | | 2007 - | Encounter | [facility] | MD Michael [address] | | | | | [address] | [place] | | | 10/10/ | | [place] | [address] | | | 2007 | | [place], [place] | | | | | | [address] | | | | | | [phone] | | | +--------+ + + + [...]
--- OUTSIDE RECORDS SUMMARY | ~2019-04-10 | XMS | Encounter Summary ---
Demographics + + + | Address | [address] | | | [place] [address] | + + + | Home Phone | | + + + | Preferred Language | Unknown | + + + | Marital Status | | + + + | Hoahaoism Affiliation | Unknown | + + + | Race | Unknown | + + + | Ethnic Group | Unknown | + + + Author + + + | Author | [facility] | | | and [place] | + + + | Organization | [facility] | | | and [place] | + + + | Address | Unknown | + + + | Phone | Unavailable | + + + Care Team Providers + +------+ + | Care Sheet Metal Technician Name | Role | Phone | [...] Provider Unknown | | | | | [place], [place] | [phone] | | | | | [address] | | | | | | [phone] | | | +--------+ + + + [...] + +--------+ + + + | PATHOLOGY RESOURCE TEACHER | Routin | 06/24/2008 | | Results for this | | REQUEST | e | 11:12 AM | | procedure are in the | | | | PST | | results section. | + +--------+ + + + documented in this encounter Results Pathology Facility Worker Request (06/24/2008 11:12 AM PST) + +--------+ [...]
--- OUTSIDE RECORDS SUMMARY | ~2019-04-10 | XMS | Encounter Summary ---
Demographics + + + | Address | [address] | | | [place] [address] | + + + | Home Phone | | + + + | Preferred Language | Unknown | + + + | Marital Status | | + + + | Zoroastrian Affiliation | Unknown | + + + | Race | Unknown | + + + | Ethnic Group | Unknown | + + + Author + + + | Author | [facility] | | | and [place] | + + + | Organization | [facility] | | | and [place] | + + + | Address | Unknown | + + + | Phone | Unavailable | + + + Care Team Providers + +------+ + | Care Granulating Machine Operator Name | Role | Phone | + +------+ + PCP | Unavailable | + +------+ + Encounter Details +--------+ + + + + | Date | Type | Department | Care Team | Description | +--------+ + + + + | 09/12/ | [facility] | [facility] | Cali Cabrera MD | | | 2010 | Encounter | MED CTR XRAY [address] | [address] | | | | | [address] [place] | [place] [address] | | | | | [place] [address] | [phone] | | | | | [phone] | | | +--------+ + + + [...]
--- OUTSIDE RECORDS SUMMARY | ~2019-04-10 | XMS | Encounter Summary ---
Demographics + + + | Address | [address] | | | [place] [address] | + + + | Home Phone | | + + + | Preferred Language | Unknown | + + + | Marital Status | | + + + | Adventist Affiliation | Unknown | + + + | Race | Unknown | + + + | Ethnic Group | Unknown | + + + Author + + + | Author | [facility] | | | and [place] Fernando[place] | + + + | Organization | [facility] | | | and [place] | + + + | Address | Unknown | + + + | Phone | Unavailable | + + + Care Team Providers + +------+ + | Care Bulk Sealer Operator Name | Role | Phone | + +------+ + PCP | Unavailable | + +------+ + Encounter Details +--------+ + + + + | Date | Type | Department | Care Team | Description | +--------+ + + + + | 10/09/ | Hospital | [facility] | Richard Hogan | | | 2007 - | Encounter | [facility] | MD Michael [address] | | | | | [address] | [place] | | | 10/10/ | | [address] | [address] | | | 2007 | | [place], [place] | | | | | | [address] | | | | | | [phone] | | | +--------+ + + + [...]
--- OUTSIDE RECORDS SUMMARY | ~2019-04-10 | XMS | Clinical Summary ---
Demographics + + + | Address | [address] | | | [place] [address] | + + + | Home Phone | | + + + | Preferred Language | Unknown | + + + | Marital Status | | + + + | Protestant Affiliation | Unknown | + + + | Race | Unknown | + + + | Ethnic Group | Unknown | + + + Author + + + | Author | [employer] (Historical as of | | | 01-09-19) | + + + | Organization | [facility] [employer] (Historical as of | | | 01-09-19) [...] Team Providers + +------+ + | Care Histologist Technologist Name | Role | Phone | + [...]
--- OUTSIDE RECORDS SUMMARY | ~2019-04-10 | XMS | Encounter Summary ---
Demographics + + + | Address | [address] | | | [place] [address] | + + + | Home Phone | | + + + | Preferred Language | Unknown | + + + | Marital Status | | + + + | Latter Day Affiliation | Unknown | + + + | Race | Unknown | + + + | Ethnic Group | Unknown | + + + Author + + + | Author | [facility] | | | and [place] | + + + | Organization | [facility] | | | and [place] | + + + | Address | Unknown | + + + | Phone | Unavailable | + + + Care Team Providers + +------+ + | Care Marketing Communications Manager Name | Role | Phone | + +------+ + PCP | Unavailable | + +------+ + Encounter Details +--------+ + + + + | Date | Type | Department | Care Team | Description | +--------+ + + + + | 10/02/ | [facility] | [facility] | Cali Cabrera MD | | | 2010 | Encounter | MED CTR XRAY [address] | | | | | [address] | [place] [address] | | | | | [place] [address] | [phone] | | | | | [phone] | | | +--------+ + + + [...] Performed At | + + + | [facility] Diagnostic Imaging Department | [facility] | | [address] [facility] | [facility] | | SIX-VIEW SCOLIOSIS SERIES, | DIAG IMG | | 10/02/10 CLINICAL HISTORY: BACK PAIN AND SCOLIOSIS. | | | COMPARISON: Thoracic MRI 12/07/2009, CT thoracic spine 07/19/2009, | | | both from [facility]. FINDINGS: AP neutral and | | [...] Transcribed Date/Time: 10/02/2010 14:47 | | | Data Center Consultant: <Electronically Signed by Romeo Sarabia MD> | | | 10/02/10 2208 | | + + + + + | Procedure Note | + + | Percy, Rad Conversion - 07/02/2013 2:54 PM [facility] | | Diagnostic Imaging Department | | [address] [facility] | | | | | | | | SIX-VIEW SCOLIOSIS SERIES, 10/02/10 | | | | CLINICAL HISTORY: BACK PAIN AND SCOLIOSIS. | | | | COMPARISON: Thoracic MRI 12/07/2009, CT thoracic spine 07/19/2009, both from | | [facility]. | | | | FINDINGS: AP [...] | Transcribed Date/Time: 10/02/2010 14:47 | | Data Center Consultant: | | <Electronically Signed by Romeo Sarabia [...]
--- OUTSIDE RECORDS SUMMARY | ~2019-04-10 | XMS | Encounter Summary ---
Demographics + + + | Address | [address] | | | [place] [address] | + + + | Home Phone | | + + + | Preferred Language | Unknown | + + + | Marital Status | | + + + | Mormonism Affiliation | Unknown | + + + | Race | Unknown | + + + | Ethnic Group | Unknown | + + + Author + + + | Author | [facility] | | | and [place] | + + + | Organization | [facility] | | | and [place] | + + + | Address | Unknown | + + + | Phone | Unavailable | + + + Care Team Providers + +------+ + | Care Bracelet And Brooch Maker Name | Role | Phone | + +------+ + PCP | Unavailable | + +------+ + Encounter Details +--------+ + + + + | Date | Type | Department | Care Team | Description | +--------+ + + + + | 04/27/ | Hospital | [facility] | Richard Hogan | Supervision of Other | | 2006 | Encounter | [address] | MD Michael [address] | Normal | | | | [address] | [place] | | | | | [facility] [place] | [address] | | | | | [address] | | | | | | [phone] | | | +--------+ + + + [...]
--- OUTSIDE RECORDS SUMMARY | ~2019-04-10 | XMS | Encounter Summary ---
Demographics + + + | Address | [address] | | | [place] [address] | + + + | Home Phone | | + + + | Preferred Language | Unknown | + + + | Marital Status | | + + + | Samaritan Affiliation | Unknown | + + + | Race | Unknown | + + + | Ethnic Group | Unknown | + + + Author + + + | Author | [facility] | | | and [place] | + + + | Organization | [facility] | | | and [place] | + + + | Address | Unknown | + + + | Phone | Unavailable | + + + Care Team Providers + +------+ + | Care Cloth Colorer Name | Role | Phone | + +------+ + PCP | Unavailable | + +------+ + Encounter Details +--------+ + + + + | Date | Type | Department | Care Team | Description | +--------+ + + + + | 04/20/ | Hospital | [facility] | Javan Jimenez | | | 2007 | Encounter | CONVERSION [address] | [place] [phone] | | | | | [address] | (Fax) | | | | | [place] | | | | | | [address] | | | | | | [phone] | | | +--------+ + + + [...]
[~2019-04-10 12:26] MED LIST: ATIVAN1 MG PO; AUGMENTIN 875-1 EACH PO; BRINTELLIX10 MG PO; BUPROPION XL300 MG PO; NORCO 5-325 TA1 EACH PO; PREDNISONE20 MG PO; ZOLPIDEM TARTRA10 MG PO
--- OUTSIDE RECORDS SUMMARY | 2019-04-10 12:30 | XMS ---
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 EKatt VISIT COUNT (12 MO.) 1 BRENT Fox TOTAL 1 NOTE: Visits indicate total known visits. ED/UCC VISIT TRACKING (12 MO.) 04/10/2019 12:27 BRENT [place] TYPE: Emergency COMPLAINT: - HALLUCINATIONS, POSSIBLE OD INPATIENT VISIT TRACKING (12 MO.) No inpatient visits to display in this time frame [email or web address]
[2019-04-10] MEDS ORDERED: LATUDA60 MG PO (15:02)
[2019-04-10] MEDS ORDERED: VITAMIN D50000 UNI1 PO (15:02)
[2019-04-10] MEDS ORDERED: VYLIBRA 28 TAB1 EACH PO (15:02)
[2019-04-10] MEDS ORDERED: DULOXETINE HCL30 MG PO (15:03)
[2019-04-10] MEDS ORDERED: GABAPENTIN600 MG PO (15:03)
--- NOTE | 2019-04-10 19:59 | EKG ---
[facility] [address] [place], [place] [address] Signed Sinus tachycardia Cannot rule out Anterior infarct , age undetermined Abnormal ECG No previous ECGs available Confirmed by KARI MORALES MD ([id number]) on 04/10/2019 7:59:40 PM Electronically Signed By: KARI MORALES MD 04/10/191958 PATIENT NAME: DIPTI BRUNNER Electrocardiogram DATE OF : 76 PHYSICIAN: KARI MORALES MD REPORT #: [id number] REPORT IS CONFIDENTIAL AND NOT TO BE RELEASED WITHOUT AUTHORIZATION
== END 2019-04-10 19:08 | disposition short-term general hospital (02) ==
LOC: ED 12:26
DX: F43.10 Post-traumatic stress disorder, unspecified (principal); Z79.899 Other long term (current) drug therapy; F32.9 Major depressive disorder, single episode, unspecified; F41.9 Anxiety disorder, unspecified
CPT/HCPCS: 36415; 80053; 80176; 81001; 84443; 84703; 85025; 93005; 93010; 99285-25; G0480

== ENCOUNTER 2019-07-18 17:51 | Emergency (ER) | payer OTHER ==
[~2019-07-18] VITALS: Ht 170.2 cm; Wt 90.7 kg
[~2019-07-18 17:51] MED LIST changes: +DULOXETINE HCL30 MG PO; +GABAPENTIN600 MG PO; +LATUDA60 MG PO; +VITAMIN D50000 UNI1 PO; +VYLIBRA 28 TAB1 EACH PO
--- OUTSIDE RECORDS SUMMARY | 2019-07-18 17:54 | XMS ---
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 E.D. VISIT COUNT (12 MO.) [address] TOTAL 3 NOTE: Visits indicate total known visits. ED/UCC VISIT TRACKING (12 MO.) 07/18/2019 17:51 [facility] [place] TYPE: Emergency COMPLAINT: - FLU SYMPTOMS, DIFFICULTY BREATHING 04/10/2019 23:49 [facility] [place] TYPE: Emergency COMPLAINT: - LOW BP - TRANSFER IN FROM [facility] DIAGNOSES: - Syncope and collapse - Hypotension, unspecified - Hypotension, unspecified - Syncope and collapse 04/10/2019 12:27 [facility] [place] TYPE: Emergency COMPLAINT: - POSSIBLE OD DIAGNOSES: - Other senior living (current) drug therapy - Post-traumatic stress disorder, unspecified - Anxiety disorder, unspecified - Encounter for other general examination - Major depressive disorder, single episode, unspecified INPATIENT VISIT TRACKING (12 MO.) No inpatient visits to display in this time frame [email or web address]
[2019-07-18] MEDS ORDERED: LEXAPRO10 MG PO (18:01)
[2019-07-18] MEDS ORDERED: NAPROXEN500 MG PO (20:31)
== END 2019-07-18 20:45 | disposition home or self-care (01) ==
LOC: ED 17:51
DX: J11.1 Influenza due to unidentified influenza virus with other respiratory manifestations (principal); Z79.899 Other long term (current) drug therapy
CPT/HCPCS: 71046; 80053; 81001; 84703; 85025; 99283-25

== ENCOUNTER 2020-10-03 11:46 | Inpatient (IN) | payer OTHER ==
[~2020-10-03 11:46] MED LIST changes: +LEXAPRO10 MG PO; +NAPROXEN500 MG PO
--- NOTE | 2020-10-03 17:41 | NUR ---
COVID SWAB COLLECTED , SENT TO [facility], NO COMPLICATIONS
--- NOTE | 2020-10-04 07:53 | PR ---
[facility] [address] [place], [place] [address] Signed PP Progress Notes Datetime Report Generated by CPN: 10/04/2020 07:53 SUBJECTIVE: [id number] Pain: Within Normal Limits Nausea/Vomiting: Denies Flatus: Yes Bowel Movement: No Vital Signs: [id number] Vital Signs: Reviewed; Within Normal Limits Cardiovascular: Normal Respiratory: Normal Abdomen/Uterus: Normal Lochia: Normal Vulva/Perineum: Not Done Breasts: Not Done CVA Tenderness: Normal Extremities: Normal Incision: Not Applicable Progress: Normal Exam Comments: Fundus firm U-2 nontender IMPRESSION/PLAN/PROCEDURES: [id number] Impression: Normal Progression Plan: Continue Present Management Progress Notes: Pt seen and examined. Doing well. Ambulating, voiding, and tolerating full diet. Pain and lochia minimal. well. No concerns. Anticipate d/c home tomorrow due to GBS+ status. Anticipate d/c home tomorrow. Signing Physician: Breana Moy DO Copies: ~ *Electronically Signed* 10/04/20 0753 BREANA MOY DO PATIENT NAME: DIPTI BRUNNER PROGRESS NOTE DATE OF : 76 PHYSICIAN: BREANA MOY DO RPT #: [id number] REPORT IS CONFIDENTIAL AND NOT TO BE RELEASED WITHOUT AUTHORIZATION
--- NOTE | 2020-10-05 09:09 | PR ---
[facility] [address] [facility] [place], [place] [address] Signed PP Progress Notes Datetime Report Generated by CPN: 10/05/2020 09:09 SUBJECTIVE: [id number] Pain: Within Normal Limits Nausea/Vomiting: Denies Flatus: Yes Bowel Movement: Yes Vital Signs: [id number] Vital Signs: Reviewed; Within Normal Limits Notable Details: slightly elevated diastolic at 01:00 Cardiovascular: Normal Respiratory: Normal Abdomen/Uterus: Normal Lochia: Normal Vulva/Perineum: Not Done Breasts: Not Done CVA Tenderness: Normal Extremities: Normal Incision: Not Applicable Progress: Normal Exam Comments: fundus firm U-2 nontender IMPRESSION/PLAN/PROCEDURES: [id number] Impression: Normal Progression Plan: Discharge Progress Notes: Pt seen and examined. Doing well. Ambualting, voiding, and tolerating full diet. Pain and lochia minimal. well. No fevers/chills or other concerns. Desires Mirena IUD for pp contraception. Desires d/c home Signing Physician: Breana Moy DO Copies: ~ *Electronically Signed* 10/05/20908 BREANA MOY DO PATIENT NAME: DIPTI BRUNNER PROGRESS NOTE DATE OF : 76 PHYSICIAN: BREANA MOY DO RPT #: [id number] REPORT IS CONFIDENTIAL AND NOT TO BE RELEASED WITHOUT AUTHORIZATION
== END 2020-10-05 11:20 | disposition home or self-care (01) | DRG 807 ==
LOC: FBCO 11:46 → FBC 12:00 → MS 14:11 → FBC 14:27
PROVIDERS: ADMIT Obstetrics & Gynecology; ATTEND Obstetrics & Gynecology
PROC: 10E0XZZ Delivery of Products of Conception, External Approach (ICD-10-PCS; principal; 2020-10-03)
PROC: 10907ZC Drainage of Amniotic Fluid, Therapeutic from Products of Conception, Via Natural or Artificial Opening (ICD-10-PCS; 2020-10-03)
DX: O99.824 Streptococcus B carrier state complicating childbirth (principal); Z37.0 Single live birth; Z20.822 Contact with and (suspected) exposure to COVID-19; O62.3 Precipitate labor; Z3A.39 39 weeks gestation of pregnancy; O76 Abnormality in fetal heart rate and rhythm complicating labor and delivery; O99.214 Obesity complicating childbirth; E66.9 Obesity, unspecified; O99.344 Other mental disorders complicating childbirth; F41.9 Anxiety disorder, unspecified; F32.9 Major depressive disorder, single episode, unspecified; O99.284 Endocrine, nutritional and metabolic diseases complicating childbirth; E02 Subclinical iodine-deficiency hypothyroidism; O99.354 Diseases of the nervous system complicating childbirth; G89.29 Other chronic pain; Z79.899 Other long term (current) drug therapy
CPT/HCPCS: 36415; 82803; 85027; A9270; C9803; J2001; J2540; J2590; J2795; U0003